=== PATIENT | female | born 1990 | race Hispanic/Latino ===

== ENCOUNTER 2017-07-25 09:17 | Day surgery (SDC) | payer OTHER ==
[2017-07-25] MEDS: NS 1,000 ML IV (09:30)
[2017-07-25] MEDS ORDERED: LIDOCAINE 2% INJ 100 MG/5 ML SDV (FOR ANES.) As Ordered (10:58)
[2017-07-25] MEDS ORDERED: PROPOFOL 200 MG/20 ML VIAL As Ordered ×3 (10:58→11:30)
== END 2017-07-26 12:15 | disposition home or self-care (01) ==
LOC: M OPP 09:17
DX: K50.00 Crohn's disease of small intestine without complications (principal); K63.3 Ulcer of intestine; K63.89 Other specified diseases of intestine; Q43.8 Other specified congenital malformations of intestine; K64.8 Other hemorrhoids; K82.9 Disease of gallbladder, unspecified; K58.9 Irritable bowel syndrome, unspecified; D64.9 Anemia, unspecified; Z88.0 Allergy status to penicillin; Z88.3 Allergy status to other anti-infective agents; Z80.0 Family history of malignant neoplasm of digestive organs
CPT/HCPCS: 45380

== ENCOUNTER 2017-10-02 11:36 | Outpatient (CLI) | payer OTHER ==
[2017-10-02] MEDS: FILTER 1.2 MICRON (ADULT TPN/MANNITOL/REMICADE) XX (12:00)
[2017-10-02] MEDS ORDERED: NS 1,000 ML IV (12:00)
[2017-10-02] MEDS: methylPREDNISolone INJ 125 MG/2 ML VIAL (J2930) IV (12:33)
[2017-10-02] MEDS: diphenhydrAMINE 25 MG CAP PO (12:33)
[2017-10-02] MEDS: LORazepam 2 MG/ML VIAL (J2060) IV ×2 (12:33→13:38)
[2017-10-02] MEDS: inFLIXimab INJECTION 600 MG in NS 190 ML IV (12:34)
== END 2017-10-02 15:15 | disposition home or self-care (01) ==
LOC: M INFU 11:36
DX: K50.018 Crohn's disease of small intestine with other complication (principal); K50.012 Crohn's disease of small intestine with intestinal obstruction; R19.7 Diarrhea, unspecified; Z88.0 Allergy status to penicillin; Z88.3 Allergy status to other anti-infective agents; Z79.899 Other long term (current) drug therapy
CPT/HCPCS: J2930

== ENCOUNTER 2017-10-16 07:33 | Outpatient (CLI) | payer OTHER ==
[2017-10-16] MEDS ORDERED: NS 1,000 ML IV (08:00)
[2017-10-16] MEDS: diphenhydrAMINE 25 MG CAP PO (08:09)
[2017-10-16] MEDS: LORazepam 2 MG/ML VIAL (J2060) IV ×2 (08:09→08:28)
[2017-10-16] MEDS: methylPREDNISolone INJ 125 MG/2 ML VIAL (J2930) IV (08:09)
[2017-10-16] MEDS: FILTER 1.2 MICRON (ADULT TPN/MANNITOL/REMICADE) XX (08:25)
[2017-10-16] MEDS: inFLIXimab INJECTION 600 MG in NS 190 ML IV (08:28)
== END 2017-10-16 11:20 | disposition home or self-care (01) ==
LOC: M INFU 07:33
DX: K50.018 Crohn's disease of small intestine with other complication (principal); K50.012 Crohn's disease of small intestine with intestinal obstruction; Z88.0 Allergy status to penicillin; Z88.3 Allergy status to other anti-infective agents; Z79.899 Other long term (current) drug therapy
CPT/HCPCS: J2930

== ENCOUNTER 2017-11-06 14:26 | Outpatient (CLI) | payer OTHER ==
[2017-11-06] MEDS ORDERED: NS 1,000 ML IV (15:00)
[2017-11-06] MEDS: inFLIXimab INJECTION 600 MG in NS 190 ML IV (15:00)
[2017-11-06] MEDS ORDERED: ACETAMINOPHEN TAB 650MG DOSE (2X325MG) PO (15:00)
[2017-11-06] MEDS ORDERED: FILTER 1.2 MICRON (ADULT TPN/MANNITOL/REMICADE) XX (15:00)
[2017-11-06] MEDS: diphenhydrAMINE 25 MG CAP PO (15:34)
[2017-11-06] MEDS ORDERED: LORazepam 2 MG/ML VIAL (J2060) IV (15:45)
[2017-11-06] MEDS: LORazepam 2 MG/ML VIAL (J2060) IV (16:05)
[2017-11-06] MEDS ORDERED: methylPREDNISolone INJ 125 MG/2 ML VIAL (J2930) As Ordered (16:06)
[2017-11-06] MEDS ORDERED: methylPREDNISolone INJ 125 MG/2 ML VIAL (J2930) IV (16:15)
== END 2017-11-06 18:30 | disposition home or self-care (01) ==
LOC: M INFU 14:26
DX: K50.018 Crohn's disease of small intestine with other complication (principal); K50.012 Crohn's disease of small intestine with intestinal obstruction; Z88.0 Allergy status to penicillin
CPT/HCPCS: J1745

== ENCOUNTER 2017-12-25 11:03 | Outpatient (CLI) | payer OTHER ==
[2017-12-25] MEDS: NS 1,000 ML IV (11:15)
[2017-12-25] MEDS: FILTER 1.2 MICRON (ADULT TPN/MANNITOL/REMICADE) XX (11:15)
[2017-12-25] MEDS ORDERED: methylPREDNISolone INJ 125 MG/2 ML VIAL (J2930) As Ordered (11:48)
[2017-12-25] MEDS: diphenhydrAMINE 25 MG CAP PO (11:57)
[2017-12-25] MEDS: methylPREDNISolone INJ 125 MG/2 ML VIAL (J2930) IV (11:57)
[2017-12-25] MEDS: LORazepam 2 MG/ML VIAL (J2060) IV (11:57)
[2017-12-25] MEDS: inFLIXimab INJECTION 600 MG in NS 190 ML IV (12:00)
== END 2017-12-25 14:40 | disposition home or self-care (01) ==
LOC: M INFU 11:03
DX: K50.012 Crohn's disease of small intestine with intestinal obstruction (principal); Z88.0 Allergy status to penicillin
CPT/HCPCS: J2930

== ENCOUNTER → 2018-01-07 | Outpatient (CLI) | payer OTHER | LOC: M RAD 10:52 | DX: R10.11 Right upper quadrant pain (principal) ==

== ENCOUNTER 2018-01-27 14:12 | Outpatient (CLI) | payer OTHER ==
[2018-01-27] MEDS ORDERED: LORazepam 2 MG/ML VIAL (J2060) As Ordered (14:49)
[2018-01-27] MEDS: diphenhydrAMINE 25MG PO PRIOR TO INFUSION PO (14:52)
[2018-01-27] MEDS: NS 1,000 ML IV (14:52)
[2018-01-27] MEDS: FILTER 1.2 MICRON (ADULT TPN/MANNITOL/REMICADE) XX (14:52)
[2018-01-27] MEDS: inFLIXimab INJECTION 600 MG in NS 190 ML IV (15:07)
[2018-01-27] MEDS: LORazepam 2 MG/ML VIAL (J2060) IV ×2 (15:07→15:08)
== END 2018-01-27 17:30 | disposition home or self-care (01) ==
LOC: M INFU 14:12
DX: G25.81 Restless legs syndrome (principal); K50.012 Crohn's disease of small intestine with intestinal obstruction
CPT/HCPCS: J1745

== ENCOUNTER → 2018-03-16 | Outpatient (CLI) | payer OTHER ==
[~2018-03-16] MED LIST: BENT10CA PO; INFL10VL IV
== END ==
LOC: M LAB 17:15
PROVIDERS: ATTEND Internal Medicine Gastroenterology
DX: K50.012 Crohn's disease of small intestine with intestinal obstruction (principal)

== ENCOUNTER 2018-03-19 12:51 | Outpatient (CLI) | payer OTHER ==
[~2018-03-19] VITALS: Ht 154.9 cm; Wt 62.1 kg
[2018-03-19] MEDS ORDERED: inFLIXimab INJECTION 600 MG in NS 190 ML IV ONE (13:15)
[2018-03-19] MEDS ORDERED: ACETAMINOPHEN 650MG PO PRIOR TO INFUSION PO ONE (13:15)
[2018-03-19] MEDS ORDERED: diphenhydrAMINE 25MG PO PRIOR TO INFUSION PO ONE (13:15)
[2018-03-19] MEDS ORDERED: NS 1,000 ML IV SCH (13:15)
[2018-03-19] MEDS ORDERED: FILTER 1.2 MICRON (ADULT TPN/MANNITOL/REMICADE) XX ONE (13:15)
[2018-03-19] MEDS ORDERED: LORazepam 2 MG/ML VIAL (J2060) IV ONE (13:15)
[2018-03-19 13:45] VITALS: BP 103/56
[2018-03-19] MEDS ORDERED: LORazepam 2 MG/ML VIAL (J2060) IV PRN (14:00)
[2018-03-19 16:35] VITALS: BP 101/61
== END 2018-03-19 16:35 | disposition home or self-care (01) ==
LOC: M INFU 12:51
PROVIDERS: ATTEND Internal Medicine Gastroenterology
DX: K50.00 Crohn's disease of small intestine without complications (principal); Z88.0 Allergy status to penicillin; Z88.8 Allergy status to other drugs, medicaments and biological substances
CPT/HCPCS: 96375; 96413; 96415; J1745; J2060

== ENCOUNTER → 2018-04-07 | Outpatient (CLI) | payer OTHER ==
[2018-04-07 15:11] LABS: BASO # 0.1 10^3/uL (0.0-0.2); BASO % 0.7 % (0.0-1.0); EOS # 0.8 10^3/uL (0.0-0.50); EOS % 10.5 % (0.0-3.0); HEMATOCRIT 40.8 % (36.0-47.0); HEMOGLOBIN 13.2 g/dl (12.0-15.5); LYMPH # 2.6 10^3/uL (1.5-6.5); LYMPH % 35.5 % (24.0-44.0); MEAN CORPUSCULAR HEMOGLOBIN 27.6 pg (27.0-33.0); MEAN CORPUSCULAR HGB CONC 32.4 g/dl (32.0-36.5); MEAN CORPUSCULAR VOLUME 85.4 fl (80.0-96.0); MONO # 0.3 10^3/uL (0.0-0.8); MONO % 4.1 % (0.0-5.0); NEUTROPHILS # 3.6 10^3/uL (1.8-7.7); NEUTROPHILS % 49.1 % (36.0-66.0); PLATELET COUNT, AUTOMATED 305 10^3/uL (150-450); RED BLOOD COUNT 4.78 10^6/uL (4.00-5.40); WHITE BLOOD COUNT 7.3 10^3/uL (4.0-10.0)
[2018-04-07 15:42] LABS: ALBUMIN 3.5 GM/DL (3.2-5.2); BILIRUBIN,DIRECT 0.1 MG/DL (0.0-0.2); BILIRUBIN,TOTAL 0.5 MG/DL (0.2-1.0); TOTAL PROTEIN 7.5 GM/DL (6.4-8.2)
== END ==
LOC: M LAB 14:10
PROVIDERS: ATTEND Internal Medicine Gastroenterology
DX: K50.012 Crohn's disease of small intestine with intestinal obstruction (principal); K50.018 Crohn's disease of small intestine with other complication; R19.7 Diarrhea, unspecified

== ENCOUNTER → 2018-04-19 | Outpatient (CLI) | payer OTHER ==
[2018-04-19 16:57] LABS: BASO # 0.1 10^3/uL (0.0-0.2); BASO % 1.7 % (0.0-1.0); EOS # 0.4 10^3/uL (0.0-0.50); EOS % 6.4 % (0.0-3.0); HEMATOCRIT 40.6 % (36.0-47.0); HEMOGLOBIN 13.3 g/dl (12.0-15.5); LYMPH # 2.7 10^3/uL (1.5-6.5); LYMPH % 40.2 % (24.0-44.0); MEAN CORPUSCULAR HEMOGLOBIN 27.5 pg (27.0-33.0); MEAN CORPUSCULAR HGB CONC 32.8 g/dl (32.0-36.5); MEAN CORPUSCULAR VOLUME 83.9 fl (80.0-96.0); MONO # 0.3 10^3/uL (0.0-0.8); NEUTROPHILS # 3.1 10^3/uL (1.8-7.7); NEUTROPHILS % 46.5 % (36.0-66.0); PLATELET COUNT, AUTOMATED 359 10^3/uL (150-450); RED BLOOD COUNT 4.84 10^6/uL (4.00-5.40); WHITE BLOOD COUNT 6.6 10^3/uL (4.0-10.0)
[2018-04-19 17:32] LABS: ALBUMIN 3.9 GM/DL (3.2-5.2); BILIRUBIN,DIRECT 0.1 MG/DL (0.0-0.2); BILIRUBIN,TOTAL 0.4 MG/DL (0.2-1.0); TOTAL PROTEIN 7.7 GM/DL (6.4-8.2)
== END ==
LOC: M LAB 16:20
PROVIDERS: ATTEND Internal Medicine Gastroenterology
DX: K50.012 Crohn's disease of small intestine with intestinal obstruction (principal); K50.018 Crohn's disease of small intestine with other complication; R19.7 Diarrhea, unspecified

== ENCOUNTER 2018-05-08 08:08 | Outpatient (CLI) | payer OTHER ==
[2018-05-08] VITALS (7 sets, daily range): BP systolic 94–116; BP diastolic 55–61
[~2018-05-08] VITALS: Ht 152.4 cm; Wt 60.0 kg
[2018-05-08] MEDS ORDERED: ACETAMINOPHEN 650MG PO PRIOR TO INFUSION PO ONE (08:30)
[2018-05-08] MEDS ORDERED: diphenhydrAMINE 25MG PO PRIOR TO INFUSION PO ONE (08:30)
[2018-05-08] MEDS ORDERED: FILTER 1.2 MICRON (ADULT TPN/MANNITOL/REMICADE) XX ONE (08:30)
[2018-05-08] MEDS ORDERED: inFLIXimab INJECTION 600 MG in NS 190 ML IV ONE (08:30)
[2018-05-08] MEDS ORDERED: NS 1,000 ML IV SCH (08:30)
[2018-05-08] MEDS: LORazepam 2 MG/ML VIAL (J2060) IV PRN ×2 (08:40→09:34)
[2018-05-08] MEDS ORDERED: dexameTHASONE 20 MG/5 ML VIAL (J1100) As Ordered ONE (10:07)
[2018-05-08] MEDS ORDERED: dexameTHASONE 20 MG/5 ML VIAL (J1100) IV ONE (10:30)
== END 2018-05-08 13:15 | disposition home or self-care (01) ==
LOC: M INFU 08:08
PROVIDERS: ATTEND Internal Medicine Gastroenterology
DX: K50.018 Crohn's disease of small intestine with other complication (principal); K50.012 Crohn's disease of small intestine with intestinal obstruction; R19.7 Diarrhea, unspecified
CPT/HCPCS: 96375; 96413; 96415; J1100; J1745; J2060

== ENCOUNTER 2018-07-03 12:36 | Outpatient (CLI) | payer OTHER ==
[~2018-07-03] VITALS: Ht 152.4 cm; Wt 60.0 kg
[2018-07-03] MEDS ORDERED: ACETAMINOPHEN 650MG PO PRIOR TO INFUSION PO ONE (13:00)
[2018-07-03] MEDS ORDERED: NS 1,000 ML IV SCH (13:00)
[2018-07-03] MEDS ORDERED: FILTER 1.2 MICRON (ADULT TPN/MANNITOL/REMICADE) XX ONE (13:00)
[2018-07-03] MEDS ORDERED: diphenhydrAMINE 25MG PO PRIOR TO INFUSION PO ONE (13:00)
[2018-07-03 13:08] VITALS: BP 104/68
[2018-07-03] MEDS ORDERED: LORazepam 2 MG/ML VIAL (J2060) IV PRN (13:30)
[2018-07-03] MEDS ORDERED: inFLIXimab INJECTION 600 MG in NS 190 ML IV ONE (14:00)
[2018-07-03 16:38] VITALS: BP 92/58
== END 2018-07-03 16:30 | disposition home or self-care (01) ==
LOC: M INFU 12:36
PROVIDERS: ATTEND Internal Medicine Gastroenterology
DX: K50.018 Crohn's disease of small intestine with other complication (principal); K50.012 Crohn's disease of small intestine with intestinal obstruction; R19.7 Diarrhea, unspecified; Z88.1 Allergy status to other antibiotic agents
CPT/HCPCS: 96375; 96413; 96415; J1745; J2060

== ENCOUNTER → 2018-08-21 | Outpatient (REF) | payer OTHER | LOC: M LAB REF 18:15 | PROVIDERS: ATTEND Internal Medicine Gastroenterology | DX: K50.012 Crohn's disease of small intestine with intestinal obstruction (principal); R19.7 Diarrhea, unspecified ==

== ENCOUNTER 2018-09-25 12:40 | Outpatient (CLI) | payer OTHER ==
[~2018-09-25] VITALS: Ht 157.5 cm; Wt 60.0 kg
[~2018-09-25 12:40] MED LIST changes: +FOLI1TAB11 PO
[2018-09-25 12:45] VITALS: BP 103/60
[2018-09-25] MEDS ORDERED: FILTER 1.2 MICRON (ADULT TPN/MANNITOL/REMICADE) XX ONE (13:00)
[2018-09-25] MEDS ORDERED: NS 1,000 ML IV SCH (13:00)
[2018-09-25] MEDS ORDERED: diphenhydrAMINE 25MG PO PRIOR TO INFUSION PO ONE (13:30)
[2018-09-25] MEDS ORDERED: ACETAMINOPHEN 650MG PO PRIOR TO INFUSION PO ONE (13:30)
[2018-09-25] MEDS: LORazepam 2 MG/ML VIAL (J2060) IV PRN ×2 (13:39→13:55)
[2018-09-25] MEDS ORDERED: inFLIXimab INJECTION 600 MG in NS 190 ML IV ONE (14:00)
[2018-09-25 16:07] VITALS: BP 91/55
[2018-09-25 16:45] VITALS: BP 101/56
== END 2018-09-25 16:45 | disposition home or self-care (01) ==
LOC: M INFU 12:40
PROVIDERS: ATTEND Internal Medicine Gastroenterology
DX: K50.018 Crohn's disease of small intestine with other complication (principal); R19.7 Diarrhea, unspecified
CPT/HCPCS: 96375; 96413; 96415; J1745; J2060

== ENCOUNTER 2018-09-29 07:18 | Day surgery (SDC) | payer OTHER ==
[~2018-09-29] VITALS: Ht 154.9 cm; Wt 58.9 kg
[~2018-09-29 07:18] MED LIST changes: +NS 1,000 ML IV ONE
[2018-09-29] MEDS ORDERED: LIDOCAINE 2% INJ 100 MG/5 ML SDV (FOR ANES.) As Ordered ONE (08:22)
[2018-09-29] MEDS ORDERED: PROPOFOL 200 MG/20 ML VIAL As Ordered ONE ×3 (08:22→09:01)
[2018-09-29 09:43] VITALS: BP 97/52
--- NOTE | 2018-09-29 09:57 | ROOR ---
Patient Name: Babita Stout Procedure Date: 09/29/2018 8:37 AM Date of : 1990 Age: 28 Room: [facility] Gender: Female Note Status: Finalized Procedure: Colonoscopy Indications: For therapy of Crohn's disease of the small bowel and colon, Disease activity assessment of Crohn's disease of the small bowel and colon, Assess therapeutic response to therapy of Crohn's disease of the small bowel and colon Providers: Jonathan Galan MD Referring MD: JARED COLEMAN MD Requesting Provider: Medicines: Monitored Anesthesia Care Complications: No immediate complications. Procedure: Pre-Anesthesia Assessment: - Prior to the procedure, a History and Physical was performed, and patient medications and allergies were reviewed. The patient is competent. The risks and benefits of the procedure and the sedation options and risks were discussed with the patient. All questions were answered and informed consent was obtained. Patient identification and proposed procedure were verified by the physician, the nurse and the anesthesiologist in the procedure room. Mental Status Examination: alert and oriented. Airway Examination: normal oropharyngeal airway and neck mobility. Respiratory Examination: clear to auscultation. CV Examination: normal. Prophylactic Antibiotics: The patient does not require prophylactic antibiotics. Prior Anticoagulants: The patient has taken no previous anticoagulant or antiplatelet agents. ASA Grade Assessment: II - A patient with mild systemic disease. After reviewing the risks and benefits, the patient was deemed in satisfactory condition to undergo the procedure. The anesthesia plan was to use monitored anesthesia care (MAC). Immediately prior to administration of medications, the patient was re-assessed for adequacy to receive sedatives. The heart rate, respiratory rate, oxygen saturations, blood pressure, adequacy of pulmonary ventilation, and response to care were monitored throughout the procedure. The physical status of the patient was re-assessed after the procedure. The Colonoscope was introduced through the anus and advanced to the terminal ileum, with identification of the appendiceal orifice and IC valve. The colonoscopy was performed without difficulty. The patient tolerated the procedure well. The quality of the bowel preparation was good. The terminal ileum, ileocecal valve, appendiceal orifice, and rectum were photographed. Scope insertion time was 4 minutes. Scope withdrawal time was 8 minutes. The total duration of the procedure was 12 minutes. Findings: The perianal and digital rectal examinations were normal. The ileum, 25 cm from the ileocecal valve contained multiple ten mm ulcers. No bleeding was present. Biopsies were taken with a cold forceps for histology. Verification of patient identification for the specimen was done by the physician and nurse using the patient's name, date and medical record number. Estimated blood loss was minimal. Inflammation characterized by congestion (edema), erosions, granularity and loss of vascularity was found in a continuous and circumferential pattern in the cecum. The area from ascending colon to rectum was spared. This was moderate in severity, and when compared to previous examinations, the findings are improved. Biopsies were taken with a cold forceps for histology. Normal mucosa was found from ascending colon to rectum. Biopsies for histology were taken with a cold forceps from the ascending colon, transverse colon, descending colon and rectosigmoid colon for evaluation of microscopic colitis. No additional abnormalities were found on retroflexion. Impression: - Multiple ulcers in the ileum, 25 cm from the ileocecal valve. Biopsied. - Colitis. Inflammation was found in the cecum. This was moderate in severity, improved compared to previous examinations. Biopsied. - Normal mucosa from ascending colon to rectum. Biopsied. Recommendation: - Patient has a contact number available for emergencies. The signs and symptoms of potential delayed complications were discussed with the patient. Return to normal activities tomorrow. Written discharge instructions were provided to the patient. - Resume previous diet. - Continue present medications. - Await pathology results. - Repeat colonoscopy in 3 - 5 years to evaluate the response to therapy and depending on clinical and functional status. - Telephone GI clinic for pathology results in 1 week. - Return to primary care physician. Jonathan Galan MD Jonathan Galan MD 09/29/2018 9:56:37 AM Electronically signed by Jonathan Galan MD Number of Addenda: 0 Note Initiated On: 09/29/2018 8:37 AM Estimated Blood Loss: Estimated blood loss was minimal.
== END 2018-09-29 10:35 | disposition home or self-care (01) ==
LOC: M OPP 07:18
PROVIDERS: ATTEND Internal Medicine Gastroenterology
DX: K63.3 Ulcer of intestine (principal); K52.9 Noninfective gastroenteritis and colitis, unspecified; K50.80 Crohn's disease of both small and large intestine without complications; Z79.899 Other long term (current) drug therapy; Z88.0 Allergy status to penicillin; Z88.8 Allergy status to other drugs, medicaments and biological substances